=== PATIENT | female | born 1980 | race Caucasian/White ===

== ENCOUNTER 2020-04-19 08:25 | Outpatient (CLI) | payer OTHER, SELFPAY ==
[2020-04-19 08:49] LABS: Basophils Percent Auto 0.7 % (0.2-1.2); Eosinophils Absolute Auto 0.4 K/mm3 (0-0.3); Eosinophils Percent Auto 7.4 % (0-4.4); Hematocrit 40.9 % (37.0-47.0); Hemoglobin 13.7 g/dL (12.0-15.0); Immature Granulocyte Absolute 0.02 K/mm3 (0.00-0.031); Immature Granulocyte Percent A 0.4 % (0-0.5); Lymphocytes Percent Auto 34.2 % (18.3-44.2); Mean Corpuscular HGB Conc 33.5 g/dl (32-36); Mean Corpuscular Hemoglobin 30.4 pg (26-34); Mean Corpuscular Volume 90.9 fl (80-100); Mean Platelet Volume 10.9 fl (7.4-10.4); Monocytes Absolute Auto 0.5 K/mm3 (0.1-0.6); Monocytes Percent Auto 9.2 % (2.6-8.5); Neutrophils Absolute Auto 2.7 K/mm3 (1.3-6.7); Neutrophils Percent Auto 48.1 % (45.5-73.1); Platelet Count Result 304 k/mm3 (150-375); Red Cell Distribution Width 12.2 % (11.5-14.5); White Blood Count 5.6 K/mm3 (4.5-10.0)
== END 2020-04-19 08:26 | disposition home or self-care (01) ==
PROVIDERS: PCP Family Medicine; Visit Provider Obstetrics & Gynecology
DX: R10.2 Pelvic and perineal pain (principal); Z01.812 Encounter for preprocedural laboratory examination
CPT/HCPCS: 36415; 85025; 86850; 86900; 86901

== ENCOUNTER 2020-04-21 01:24 | Outpatient (CLI) | payer OTHER, SELFPAY ==
[2020-04-21 19:01] LABS: SARS-CoV-2 RNA PCR Negative
== END 2020-04-21 01:25 | disposition home or self-care (01) ==
LOC: ANHCOVIDDT 01:25
PROVIDERS: Visit Provider Obstetrics & Gynecology
DX: Z01.818 Encounter for other preprocedural examination (principal); Z11.59 Encounter for screening for other viral diseases
CPT/HCPCS: 87635; C9803; U0003

== ENCOUNTER 2020-04-23 03:01 | Day surgery (SDC) | payer OTHER, SELFPAY ==
[2020-04-15 09:27] VITALS: BMI 36.8
--- NOTE | 2020-04-21 07:24 | P.HP_ITS ---
H&P: HPI History of Present Illness Chief complaint: Pelvic Pain, Enlarged Uterus, Fibroids, Heavy Blee Narrative: Cathy Lim is a 39 year old female status post section x2 who was admitted for robotic total vaginal hysterectomy left salpingo oophorectomy and right salpingectomy. She has a k nown fibroid uterus. She has pain in the left side which is continuous. She is having dyspareunia as well. Periods are very heavy but she feels discomfort constantly. Ultrasound shows a uterus [id number]. Risks and benefits including but not exclusive of , aspiration pneumonia, bleeding, transfusion, perforation injury to bowel, bladder, ureters, or other internal organs with need for open laparotomy were reviewed. She received the ACO[employer] handout entitled hysterectomy as well as a div inch and out. She had all questions answered and asked to proceed Review of Systems Review of Systems: All systems reviewed & are unremarkable except as noted in HPI and below PMFSH Social History Social History Smoking status: Never smoker Spiritual care concerns: No Meds Home Medications and Allergies Home Medications Medication Instructions Recorded Confirmed Type albuterol sulfate [ProAir HFA] 1 inh INHALATION QID PRN 04/15/20 04/15/20 History Allergies Allergy/AdvReac Type Severity Reaction Status Date / Time morphine AdvReac Itching Verified 04/15/20 09:28 RAW FRUITS AND VEGETABLES. Allergy Unknown TONGUE Uncoded 04/15/20 09:28 SWELLING, THROAT ITCHING Exam Const: General: no acute distress Eyes: General: appearance normal, both eyes and all related structures Neck: Neck: supple and no JVD Thyroid: thyroid normal Resp: Effort & Inspection: normal respiratory effort Auscultation: clear to auscultation bilaterally Cardio: Rate: regular rate Rhythm: regular rhythm GI: Inspection: non-distended GI Palp: Yes Soft to palpation, No Tenderness to palpation present (GI) and No Guarding due to palpation present (GI) Auscultation: normal bowel sounds : General: Yes bladder normal to palpation External Female Exam: normal external appearance Speculum Exam - Vagina: normal appearance of the vagina Speculum Exam - Cervix: Cervical os closed Bimanual exam- vagina & uterus: Cervical tenderness present and enlarged Bimanual Exam- Adnexa, other: tender on the left Skin: General skin exam: no rashes or lesions noted Extrem: General: normal to inspection and no edema Psych: Mental Status: mental status grossly normal Affect: normal affect Assessment and Plan Additional Plan impression: Symptomatic uterine fibroids and left-sided pelvic pain Plan: Robotic total vaginal hysterectomy bilateral salpingectomy and left oophorectomy
[2020-04-23] VITALS (20 sets, daily range): BP systolic 95–132; BP diastolic 54–85; PULSE 69–101; RESP 10–18; TEMP 36.2–37.2; O2SAT 89–100; BMI 39.2
--- NOTE | 2020-04-23 06:18 | WPDHPUPDATE1 ---
History and Physical Update Update Date/Time: 04/23/20 06:18 History and Physical has been reviewed, including an updated exam of the patient. There are NO changes in the patient's condition. Risks, benefits, and alternatives have been discussed and questions answered. Patient agrees to proceed with procedure.
--- NOTE | 2020-04-23 08:19 | SUR.PREOP ---
0745; PT SUPPOSED TO ARRIVE AT 0730 FOR 0930 CASE. CALLED PT. SHE STATES SHE DID NOT RECEIVE A PHONE CALL FOR TIME CHANGE. ANTHONY OLIVAS RN NOTIFIED. SHE NOTIFIED OR [employer].
--- NOTE | 2020-04-23 08:53 | WPDANESEPPF ---
Anes - Initial Pre Proc Eval Procedure: Operation Date: 04/23/20 09:30 Proposed Procedures p Robotic Assisted Total Vaginal Hysterectomy, Left Salpingo-Oophorectomy, Right Salpingectomy - Nicholas Rodrigez MD Date/Time: 04/23/20 08:53 Surgeon: Nicholas Rodrigez MD Pre Op Diagnosis: Pelvic Pain, Enlarged Uterus, Fibroids, Heavy Blee Patient Data Age: 39 Gender: F Height: 5 ft 4 in Weight: 103.7 kg Allergies Allergy/AdvReac Type Severity Reaction Status Date / Time morphine AdvReac Itching Verified 04/23/20 08:42 RAW FRUITS AND VEGETABLES. Allergy Unknown TONGUE Uncoded 04/23/20 08:42 SWELLING, THROAT ITCHING Home Medications Medication Instructions Recorded Confirmed Type albuterol sulfate [ProAir HFA] 1 inh INHALATION QID PRN 04/15/20 04/23/20 History hydrocodone-acetaminophen [[place]] 1 tablet PO Q4H PRN #20 tablet 04/23/20 Rx Patient hx anesthesia problems: post op nausea/vomiting Family hx anesthesia problems: none PMFSH Past Medical History Medical History Anxiety Hx of migraines Social History Social History Smoking status: Never smoker Spiritual care concerns: No Anes - Eval Final PreProcedure Day of Procedure 04/23/20 08:53 Patient weight: obese Heart: regular rate and rhythm Lungs: clear to auscultation Airway: Mallampati scale class II Neurological: alert and oriented Last oral intake: >/= 8 hours ASA classification: II Emergent: no Anesthetic plan: proceed Anesthesia type and monitoring: general ETT and standard monitoring Informed Consent: The patient's anesthetic plan and its attendant risks and benefits were discussed with the patient/family/POA. Questions were solicited and answers provided to the satisfaction of the patient/family/POA.
[2020-04-23] MEDS: LACTATED RINGERS 1,000 ML 30 ML IV CONT ×2 (09:00→10:42)
[2020-04-23] MEDS: SCOPOLAMINE 1.5 MG PATCH TRANSDERM (09:16)
[2020-04-23] MEDS: ceFAZolin 2 GM/D5W 50 ML 2 GM/50 ML BAG IVPB (09:19)
--- NOTE | 2020-04-23 10:30 | PM.PROC ---
Procedure Note - Detailed Date of procedure: 04/23/20 Pre-op diagnosis: Pelvic Pain, Enlarged Uterus, Fibroids, Heavy Blee Surgeon: Nicholas Rodrigez MD Postop diagnosis: Pelvic pain/ enlarged uterus with fibroids / heavy bleeding refractory to medical therapy /right ovarian cyst Procedure: Robotic total vaginal hysterectomy /left salpingo-oophorectomy / right salpingectomy/ excision of large fibroepithelial polyp of the left thigh EBL: 25cc Anesthesia: General tracheal Complications: None Findings: Fibroid uterus. Moderate size left ovarian cyst. Normal-appearing tubes Procedure: The patient is prepped and draped in the normal sterile fashion placed in the dorsal lithotomy position. Under excellent general trach anesthesia weighted speculum placed in posterior fornix of vagina. Anterior lip of the cervix grasped with single-tooth tenaculum. Uterus sounded to 9cm. Serial dilatation with fragmented dilators performed followed by passage of a 8. ELVIA and the 3. Cold cup. Sixteen Macedonian catheter was then placed. The remainder the instruments removed. Gloves were changed. A supraumbilical incision made and the Veress needle passed in the abdomen. The abdomen was filled with CO2 gas [id number]. The 8mm trocar advanced under direct visualization assuring no injury. The patient placed in Trendelenburg and right and left lateral quadrant incisions made. The 8mm trocars were advanced under direct visualization assuring no injury. A right upper quadrant incision made in the 10mm trocar advanced under direct visualization and again assuring no injury. The robot was docked. The round ligament on the left was grasped, burned, cut. Anteriorly a bladder flap was formed by sharply dissecting the bladder from caudally away to the opposite round ligament which was clamped, burned, cut. Next the left infundibulopelvic structure was skeletonized to remove the left ovary and tube this was clamped, burned, cut and brought to the level of previously cut round ligament. The right fallopian tube was to be removed with the right ovary to be retained. The fallopian tube was then sharply dissected with cautery and left attached to the uterine specimen. The the right utero-ovarian ligament was skeletonized and clamped, burned, cut. This was brought to the level of the previously cut round ligament conserving the right ovary. The left cardinal and broad ligaments were then serially skeletonized and brought down the lateral edge of the uterus clamping burning and cutting. Once the uterine vessels could be seen these were individually skeletonized in individually clamped, burned, cut. In like fashion the cardinal and broad ligaments on the right were serially skeletonized. These were clamped, burned, cut and brought down to the level uterine vessels. These uterine vessels on the right were individually clamped, burned, cut. An excellent blanching the uterus was seen a colpotomy incision was made in the cervix uterus left and right tube and left ovary removed through the vagina. Blood loss estimated 25cc. The vagina closed with continuous running 0V lock from lateral edge to lateral edge and back to the midline. Irrigation undertaken to clear hemostasis was assured all pedicles appeared dry. The robot was undocked and gas removed from the abdomen. The trocars removed and the incisions closed with 4 Monocryl and glue. The patient was awakened went recovery in satisfactory condition following removal of a large fibroepithelial polyp on the left thigh. This is circumferential incision was made around this. And cauterized at the base the incisions were closed the incision was closed with 230 Monocryl. Blood loss for that portion was 1cc the patient was awakened. She went to recovery in satisfactory condition. All sponge, needle, instrument counts were correct. There were no immediate complications
[2020-04-23] MEDS: DEXTROSE 5%/0.45% SOD CHL 1,000 ML 125 ML IV CONT (13:20)
[2020-04-23] MEDS: KETOROLAC 30 MG/ML VIAL (*BKC) IV PUSH ×2 (13:20→19:56)
[2020-04-23] MEDS: DOCUSATE SODIUM 100 MG CAPSULE PO (16:12)
--- NOTE | 2020-04-23 19:53 | PC.NURSE ---
1242 Pt admitted to room 278 per bed from PACU after Robotic surgery today with Dr. Ahmet Hutchins. Pt awake, but sleepy; responding appropriately. Pt alone, her is home with their children. Pt oriented to staffing and procedures; told of admission folder at bedside. Pt's VSS and assessment WNL.
--- NOTE | 2020-04-23 20:13 | PC.NURSE ---
1230 Pt c/o her lower lip feelng swollen; lip appeared normal to nurse; reassured pt sensation probably due to breathing tubes used during surgery. 1545 pt called out c/o difficulty breathing; VS stable; lungs clear; pt had been sleeping soundly. awakened, and seemed anxious. Nurse talked her, reassured her, and pt calmed. Pt reported pain tolerable at 3-4. Pt able to start po fluids and eat crackers. 1611 po pain meds started. 1710 pt c/o increased pain and again difficulty breathing.Assessment WNL. Lungs clear; pt not in acute distress, but does seem anxious again; pt reports having some anxiety, but does not take meds. Pt repositioned to her L side, and she reported immediately feeing better with pain tolerable. pt did not want to take additional pain med. She was encouraged to sleep. Pt also c/o of her lower lip now feeling numb; no change in how her lower lip appears. Called Anesthesia physician in house; he felt like pt's symptoms related to anestheia equipment used, and pt being in trendelenburg for surgery; order to continue observation and anesthesia staff will round in a.m. Pt advised of this and agreed with the plan.
[2020-04-24 06:11] LABS: Basophils Percent Auto 0.1 % (0.2-1.2); Eosinophils Percent Auto 0.1 % (0-4.4); Hematocrit 36.3 % (37.0-47.0); Hemoglobin 12.2 g/dL (12.0-15.0); Immature Granulocyte Absolute 0.04 K/mm3 (0.00-0.031); Immature Granulocyte Percent A 0.4 % (0-0.5); Lymphocytes Absolute Auto 1.89 K/mm3 (0.9-3.2); Lymphocytes Percent Auto 18.4 % (18.3-44.2); Mean Corpuscular HGB Conc 33.6 g/dl (32-36); Mean Corpuscular Hemoglobin 30.7 pg (26-34); Mean Corpuscular Volume 91.4 fl (80-100); Mean Platelet Volume 11.2 fl (7.4-10.4); Monocytes Absolute Auto 0.8 K/mm3 (0.1-0.6); Monocytes Percent Auto 7.8 % (2.6-8.5); Neutrophils Absolute Auto 7.5 K/mm3 (1.3-6.7); Neutrophils Percent Auto 73.2 % (45.5-73.1); Platelet Count Result 286 k/mm3 (150-375); Red Blood Count 3.97 M/mm3 (4.2-5.4); Red Cell Distribution Width 12.2 % (11.5-14.5); White Blood Count 10.3 K/mm3 (4.5-10.0)
[2020-04-24 08:40] VITALS: BP 105/54; PULSE 87; RESP 16; TEMP 36.6; O2SAT 100
--- NOTE | 2020-04-24 10:10 | PM.GYNPNOP ---
[employer] - A/P Postoperative Procedures: Procedures Operation Date: 04/23/20 09:30 Actual Procedures Side Surgeon p Robotic Assisted Total Vaginal Hysterectomy, Left Salpingo-Oophorectomy, Right Salpingectomy, Removal of large skin tag left thigh Nicholas Rodrigez MD A: POD#1, doing well. P: Home to f/u 2 weeks. Time Spent With Patient Time with patient: less than 15 minutes [employer]EL[employer]- PN:Subj Post-Op Subjective Date/time seen: 04/24/20 10:10 Interval history: Pain OK. Tolerating diet. Voiding. Would like to go home. Exam Narrative: Exam Narrative: AVSS I/O OK ABD soft, nontender. Incisions c/d/i. EXT nontender [employer]ELOPER - PN: Obj Data Vital Signs Vital Signs: Vital Signs - 24 hr 04/23/20 10:41 04/23/20 10:55 04/23/20 11:04 Temperature 36.2 C L Pulse Rate 79 72 79 Respiratory Rate 16 18 16 Blood Pressure 115/75 117/78 108/68 Pulse Oximetry 89 L 95 93 04/23/20 11:10 04/23/20 11:25 04/23/20 11:40 Temperature Pulse Rate 70 74 69 Respiratory Rate 18 18 10 L Blood Pressure 118/65 119/69 111/66 Pulse Oximetry 93 91 97 04/23/20 11:55 04/23/20 12:10 04/23/20 12:25 Temperature Pulse Rate 71 84 79 Respiratory Rate 14 18 16 Blood Pressure 115/73 116/70 129/73 Pulse Oximetry 97 96 96 04/23/20 12:42 04/23/20 12:51 04/23/20 13:00 Temperature 36.5 C Pulse Rate 86 100 79 Respiratory Rate 18 18 16 Blood Pressure 132/85 118/65 Pulse Oximetry 98 98 97 04/23/20 13:15 04/23/20 13:30 04/23/20 14:00 Temperature Pulse Rate 93 101 H 95 Respiratory Rate 16 16 16 Blood Pressure 122/66 120/71 121/65 Pulse Oximetry 97 99 98 04/23/20 15:00 04/23/20 16:00 04/23/20 20:00 Temperature 36.7 C 36.3 C L 37.2 C Pulse Rate 95 98 76 Respiratory Rate 16 18 18 Blood Pressure 114/63 110/67 98/54 L Pulse Oximetry 98 96 97 04/23/20 23:15 04/24/20 08:40 Temperature 37.2 C 36.6 C Pulse Rate 70 87 Respiratory Rate 18 16 Blood Pressure 104/57 L 105/54 L Pulse Oximetry 99 100 Intake/Output Intake/Output: Intake & Output 04/21/20 04/22/20 04/23/20 04/24/20 23:59 23:59 23:59 23:59 Intake Total 1565 1970 Output Total 660 0 Balance 905 -80 Meds/Results Medications: Active Medications Generic Name Dose Route Start Last Admin Trade Name Freq PRN Reason Stop Dose Admin Hydrocodone Bitart/Acetaminophen 1 tab 04/23/20 12:39 04/23/20 16:11 [place] 5-325 Mg PO 1 tab Q3H PRN Administration Pain Rated 5 or Less Hydrocodone Bitart/Acetaminophen 1 tab 04/23/20 12:39 [place] 10-325 Mg PO Q3H PRN Pain Rated 6 or Greater Docusate Sodium 100 mg 04/23/20 17:00 04/23/20 16:12 Colace Capsule PO 100 mg BID KEEGAN Administration Enoxaparin Sodium 40 mg 04/24/20 09:00 Lovenox SUB-Q DAILY KEEGAN Dextrose/Lactated Ringer's 1,000 mls @ 125 mls/hr 04/23/20 12:39 Dextrose 5%/Lactated Ringers IV CONT .Q8H KEEGAN Dextrose/Sodium Chloride 1,000 mls @ 125 mls/hr 04/23/20 12:39 04/23/20 16:15 Dextrose 5% Sodium Chloride 0.45% IV CONT 125 mls/hr .Q8H KEEGAN Infusion Ibuprofen 600 mg 04/23/20 12:39 Motrin PO Q6H PRN Cramping Ketorolac Tromethamine 30 mg 04/23/20 12:39 04/23/20 19:56 Toradol Inj IV PUSH 04/28/20 12:40 30 mg Q6H PRN Administration Pain Rated 4-6 Morphine Sulfate 4 mg 04/23/20 12:39 Morphine Sulfate Inj IV PUSH Q4H PRN Severe breakthrough pain Naloxone HCl 0.1 mg 04/23/20 12:39 Narcan IV PUSH Q2M PRN Respiratory rate less than 10 Ondansetron HCl 4 mg 04/23/20 12:39 Zofran Inj IV PUSH Q6H PRN Nausea And Vomiting Simethicone 80 mg 04/23/20 12:39 Mylicon PO Q2H PRN Gas Labs CBC & Chem 7: 04/24/20 05:51 Labs: Laboratory Results - last 24 hr 04/24/20 05:51 WBC 10.3 H RBC 3.97 L Hgb 12.2 Hct 36.3 L MCV 91.4 MCH 30.7 MCHC 33.6 RDW 12.2 Plt Count 286 MPV 11.2 H Immature Gran % (Auto)
[2020-04-24] MEDS: IBUPROFEN 600 MG TABLET PO (11:36)
[2020-04-24] MEDS: DOCUSATE SODIUM 100 MG CAPSULE PO (11:36)
[2020-04-24] MEDS: SIMETHICONE 80 MG TAB.CHEW PO (11:36)
[2020-04-24] MEDS: ENOXAPARIN 40 MG/0.4 ML SYRINGE SUB-Q (11:39)
--- NOTE | 2020-04-24 11:39 | P.PNAN_ITS ---
Anes - Prog Note Post-Op Date/Time: 04/24/20 11:39 Cardiovascular status: normal Respiratory status: normal Airway patency: baseline Mental status: baseline Post-Op hydration status: normal Vital Signs: Last Vital Signs Temp 36.6 C 04/24/20 08:40 Pulse 87 04/24/20 08:40 Resp 16 04/24/20 08:40 BP 105/54 L 04/24/20 08:40 Pulse Ox 100 04/24/20 08:40 I/O: Intake & Output 04/23/20 04/24/20 04/24/20 23:59 07:59 15:59 Intake Total 715 1170 800 Output Total 500 1750 300 Balance 215 -580 500 Laboratory Tests 04/24/20 05:51 04/24/20 05:51 WBC 10.3 H RBC 3.97 L Hgb 12.2 Hct 36.3 L MCV 91.4 MCH 30.7 MCHC 33.6 RDW 12.2 Plt Count 286 MPV 11.2 H Immature Gran % (Auto) 0.4 Neut % (Auto) 73.2 H Lymph % (Auto) 18.4 [place] % (Auto) 7.8 Eos % (Auto) 0.1 Baso % (Auto) 0.1 L Lymph # (Auto) 1.89 [place] # (Auto) 0.8 H Eos # (Auto) 0.0 Baso # (Auto) 0.0 Abs Immat Gran (auto) 0.04 H Absolute Neuts (auto) 7.5 H Absolute Nucleated RBC 0.0 Nucleated RBC % 0.0 Post-procedural complaints: none Patient Feedback: Patient satisfied with anesthetic care.
--- NOTE | 2020-04-24 11:54 | PC.NURSE ---
Discharge instructions given per Dr. Mosqueda's orders. Pt. verbalized understanding. No questions or concerns verbalized. at side.
== END 2020-04-24 11:46 | disposition home or self-care (01) ==
LOC: ANHSURGERY 08:25 → ANHOB2 13:00
PROVIDERS: PCP Family Medicine; Visit Provider Obstetrics & Gynecology
PROC: (CPT 58552; principal; 2020-04-23 09:30)
DX: R10.2 Pelvic and perineal pain (principal); D25.2 Subserosal leiomyoma of uterus; N83.02 Follicular cyst of left ovary; N73.6 Female pelvic peritoneal adhesions (postinfective); D17.24 Benign lipomatous neoplasm of skin and subcutaneous tissue of left leg; E66.9 Obesity, unspecified; Z68.39 Body mass index [BMI] 39.0-39.9, adult
CPT/HCPCS: 58552; S2900; 36415; 85025; 88304; 88305; 88307; 99199; A9270; J0690; J1100; J1650; J1885; J2250; J2405; J2704; J2710; J3010; J7030; J7120